=== PATIENT | female | born 1990 | race Caucasian/White ===

== ENCOUNTER 2016-12-23 09:44 | Inpatient (IN) | payer BC ==
[~2016-12-23] VITALS: Ht 160 cm; Wt 70.9 kg
[2016-12-23] VITALS (30 sets, daily range): BP systolic 108–141; BP diastolic 62–85; PULSE 69–111; TEMP 98–98.7
[2016-12-23] MEDS ORDERED: PRENATAL (10:05)
[2016-12-23 12:45] LABS: BASO % 0.4 % (0.0-2.0); EOS # 0.1 (0.0-0.7); EOS % 0.8 % (0-4.0); GRAN # 7.1 (1.4-6.5); GRAN % 72.9 % (42.2-75.2); HEMATOCRIT 39.8 % (37.0-47.0); HEMOGLOBIN 13.4 g/dl (12.5-16.0); LYMPH # 1.8 (1.2-3.4); LYMPH % 18.5 % (20.0-51.0); MEAN CELL VOLUME 85 fl (80.0-100.0); MEAN CORPUSCULAR HEMOGLOBIN 29 pg (27.0-31.0); MEAN CORPUSCULAR HGB CONC 34 g/dl (33.0-37.0); MEAN PLATELET VOLUME 11.4 fl (7.4-10.4); MONO # 0.7 (0.1-0.6); MONO % 7.1 % (1.7-9.3); PLATELET COUNT 183 K/mm3 (130-400); RED BLOOD COUNT 4.66 M/mm3 (4.10-5.30); WHITE BLOOD COUNT 9.7 K/mm3 (4.8-10.8)
[2016-12-24 04:07] VITALS: BP 109/71; PULSE 75; TEMP 97.5
[2016-12-24 07:53] VITALS: BP 116/72; PULSE 74; TEMP 98.6
[2016-12-24 12:15] VITALS: BP 108/69; PULSE 84; TEMP 97.8
[2016-12-24 16:10] VITALS: BP 109/74; PULSE 96; TEMP 98.2
[2016-12-24 20:30] VITALS: BP 111/64; PULSE 69; TEMP 98.9
[2016-12-25 07:30] VITALS: BP 107/71; PULSE 66; TEMP 98.3
[2016-12-25] MEDS ORDERED: IBU800 M1 PO (09:07)
== END 2016-12-25 12:15 | disposition home or self-care (01) | DRG 775 ==
LOC: LDRO 09:44 → LDR 12:11 → OB 12:11
PROVIDERS: Obstetrics & Gynecology
PROC: 10E0XZZ Delivery of Products of Conception, External Approach (ICD-10-PCS; principal; 2016-12-23)
PROC: 0HQ9XZZ Repair Perineum Skin, External Approach (ICD-10-PCS; 2016-12-23)
DX: O70.0 First degree perineal laceration during delivery (principal); Z37.0 Single live birth; Z3A.38 38 weeks gestation of pregnancy
CPT/HCPCS: J2590; J2795; J7120

== ENCOUNTER → 2020-03-10 | Outpatient (CLI) | payer BC ==
[~2020-03-10] MED LIST: IBU800 M1 PO; PRENATAL
[2020-03-10 22:59] LABS: HEPATITIS B SURFACE ANTIBODY <2.0 (())
[2020-03-12 12:28] LABS: HEPATITIS Be ANTIGEN Negative (Negative)
== END ==
LOC: COL.LAB 11:20
DX: B19.10 Unspecified viral hepatitis B without hepatic coma (principal)